=== PATIENT | male | born 1975 | race Caucasian/White ===

== ENCOUNTER → 2020-12-11 15:57 | Outpatient (CLI) | payer SELFPAY ==
--- NOTE | 2020-12-11 16:14 | MRI_ITS ---
STUDY: MRI LUMBAR SPINE WITH AND WITHOUT CONTRAST REASON FOR EXAM: Male, 45 years old. TESTICULAR CA TECHNIQUE: Standardized fat and water weighted pulse sequences were obtained in the sagittal and axial planes. IV dotarem 14ml was administered for the contrast portion of the examination. COMPARISON: 08/21/2020. FINDINGS: Normal lumbar lordosis. Normal conus medullaris that terminates at the L1 Again noted is the large right anterolateral retroperitoneal mass. Again noted is the adjacent pathologic fracture of L2 with significantly decreased soft tissue and no demonstrated ventral epidural invasion now. There is no demonstrated foraminal invasion. L2-3: There is minimal disc space narrowing and endplate spondylosis. There is no significant disc herniation, central canal or foraminal stenosis. L3-4: There is moderate disc space narrowing and endplate spondylosis. There is no significant disc herniation, central canal or foraminal stenosis. L4-5: There is mild disc space narrowing and endplate spondylosis. There is no significant disc herniation, central canal or foraminal stenosis. Mild facet arthropathy L5-S1: There is mild disc space narrowing and endplate spondylosis. There is no significant disc herniation, central canal or foraminal stenosis. Mild facet arthropathy MRI/Spine Lumbar W/WO Contrast IMPRESSION: Significantly improved L2 pathologic fracture with resolved epidural disease now. No other vertebral lesions. Electronically Signed: Janey Aj MD at 10:20 EDT Tel , Service support ,
--- NOTE | 2020-12-11 16:14 | MRI_ITS ---
STUDY: MRI THORACIC SPINE WITH AND WITHOUT CONTRAST REASON FOR EXAM: Male, 45 years old. TESTICULAR CA TECHNIQUE: IV doteram 14ml was administered for the contrast portion of the examination. COMPARISON: CTA chest dated 11/28/2020 FINDINGS: Normal kyphosis of the thoracic spine. There is no substantial scoliosis. T1-2, T2-3, T3-4, T4-5, T5-6, T6-7, T7-8, T8-9, T9-10, T10-11, T11-12: There are mild/moderate multilevel disc space narrowing and endplate sclerosis without demonstrated central canal or foraminal stenosis Normal visualized thoracic cord. There is no enhancing abnormality. Again noted is a large right anterolateral paraspinal soft tissue mass better evaluated on the lumbar spine MRI. MRI/Spine Thoracic W/WO Contrast IMPRESSION: Moderate degenerative changes. Electronically Signed: Janey Aj MD at 10:13 EDT Tel , Service support ,
== END ==
DX: C62.11 Malignant neoplasm of descended right testis (principal); R59.0 Localized enlarged lymph nodes
CPT/HCPCS: 72157; 72158; A9575

== ENCOUNTER → 2021-03-15 16:52 | Outpatient (CLI) | payer SELFPAY ==
--- NOTE | 2021-03-15 17:24 | MRI_ITS ---
STUDY: MRI THORACIC SPINE WITH AND WITHOUT CONTRAST REASON FOR EXAM: Male, 45 years old. TESTES CA, BONE METS TECHNIQUE: IV 14cc dotarem was administered for the contrast portion of the examination. COMPARISON: None. FINDINGS: No evidence of metastatic disease in the thoracic spine. No fracture or aggressive osseous lesions. The thoracic spinal cord has normal contour and signal with no enhancing lesions. No epidural masses in the thoracic spine. Mild for age degenerative changes are similar to previous with only mild narrowing of the spinal canal and foramina. Please see lumbar spine MRI dictated separately regarding the large retroperitoneal mass and L2 metastatic disease partially visible on this study. MRI/Spine Thoracic W/WO Contrast IMPRESSION: No evidence of metastatic disease in the thoracic spine. Electronically Signed: Jovany Sneed MD at 8:20 EDT Tel , Service support ,
--- NOTE | 2021-03-15 17:26 | MRI_ITS ---
ACR Level 3 findings have been noted. An addendum which confirms receipt of the report will follow. STUDY: MRI LUMBAR SPINE WITH AND WITHOUT CONTRAST REASON FOR EXAM: Male, 45 years old. TESTICULAR CA, BONE METS TECHNIQUE: Standardized fat and water weighted pulse sequences were obtained in the sagittal and axial planes. IV DOTAREM 14CC was administered for the contrast portion of the examination. COMPARISON: 12/11/2020 MRI lumbar spine. FINDINGS: Significant interval worsening of the metastatic lesion involving the L2 vertebral body. There is now a large extra vertebral soft tissue component in the right prevertebral space, and extending posteriorly through the right L2-3 foramen and into the right greater than left anterior epidural space and causing moderate spinal canal narrowing, particularly of the right aspect of the spinal canal, with moderate mass effect upon traversing right L3 nerve root in the subarticular zone and upon the exiting right L2 nerve root in the foramen. Only mild mass effect upon the remainder of the cauda equina. The large right retroperitoneal mass at this level has increased slightly in size, 11.5 x 7.8 cm TRV X AP increased from 10.8 x 7.2 cm. Pathologic moderate compression of the L2 vertebral body is similar to previous. Mild edema and enhancement within the right anterior inferior aspect of the L1 vertebral body subjacent to the large prevertebral mass is new compared to prior. No other vertebral lesions are evident. No new fractures. Alignment anatomic. The remainder of the spinal canal, cauda equina, and conus are unremarkable. Right greater left renal cysts again demonstrated. MRI/Spine Lumbar W/WO Contrast IMPRESSION: Interval worsening of metastatic disease at L2, with new extra vertebral metastatic soft tissue in the right prevertebral space and right greater than left anterior epidural space. Moderate mass effect upon the right L2 and L3 nerve roots. Only mild mass effect upon the remainder of the cauda equina. Edema in the more cephalad L1 vertebral body is new compared to prior. The overlying cortex is intact suggesting that this is reactive edema rather than direct metastatic invasion which is less likely. The large right retroperitoneal mass at the level of L2 has enlarged slightly. Electronically Signed: Jovany Sneed MD at 8:15 EDT Tel , Service support ,
== END ==
DX: C62.10 Malignant neoplasm of unspecified descended testis (principal); C79.51 Secondary malignant neoplasm of bone
CPT/HCPCS: 72157; 72158; A9575